=== PATIENT | male | born 1945 | race Caucasian/White ===

== ENCOUNTER → 2018-02-05 | Outpatient (CLI) | payer MEDICARE ==
[~2018-02-05] MED LIST: ASPI-650 PO; FERR325T18 PO; FLUC200T4 PO; INSU100C5 SQ; INSU100I29 SC; INSU100I29 SQ-INSULIN; LEVE500T53 PO; LEVO500T47 PO; MAGN400T7 PO; OXYC1TAB7 PO; POLY17PO5 PO; SULF1TAB24 PO; TRAM-47 PO
== END | disposition home or self-care (01) ==
LOC: RAD 12:08
PROVIDERS: ATTEND Physician Assistant
DX: S52.091A Other fracture of upper end of right ulna, initial encounter for closed fracture (principal); W11.XXXA Fall on and from ladder, initial encounter; M25.521 Pain in right elbow